=== PATIENT | female | born 1980 | race Caucasian/White ===

== ENCOUNTER 2018-06-27 19:50 | Emergency (ER) | payer OTHER, SELFPAY ==
--- NOTE | 2018-06-27 19:55 | ED_ITS ---
HPI - General Adult General Chief complaint: Chest Pain Stated complaint: CHEST TIGHTNESS, EDEMEA S/P SURGERY Time Seen by Provider: 06/27/18 19:54 Source: patient Mode of arrival: ambulatory Limitations: no limitations History of Present Illness HPI narrative: Patient is a 38-year-old female who approximately 5 days ago underwent a . This was a repeat and scheduled secondary to prior C-sections. Patient had a uncomplicated and delivery. Was discharged home approximately 48 hr after the procedure. She stated that prior to discharge she did bring up that she was feeling swelling in her lower extremities and also her hands. She was told that this was expected after just delivering. She is . Pain is controlled. Has had not having any vaginal bleeding. She states that since the evening that she was discharged from the hospital she was having shortness of breath when she lays flat. States she does not notice the symptoms when she is sitting up when she is ambulating. States she has a very slight left-sided chest pain. She states that the swelling in her ankles and hands is still there but has improved significantly. 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 Two of them have been coiled. One of them was deemed too small to intervened upon. 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 She was on aspirin during her for this. Related Data Previous Rx's Medication Instructions Recorded frgredtbaz-bdjksxrzuxrqx-[id number] 2 cap PO NEEDED #20 tab 02/26/18 50 mg-300 mg-40 mg capsule clotrimazole 1 % topical cream 1 applictn TOP BID #12 gram 04/13/18 azithromycin 250 mg tablet See Label Instructions PO .COMPLEX 05/25/18 #6 tab propranolol 10 mg PO BID #60 tab 06/04/18 betamethasone acetate and sodium 12 mg IM DAILY #2 ml 06/05/18 phos 6 mg/mL suspension for injection Allergies Allergy/AdvReac Type Severity Reaction Status Date / Time Estrogens [ESTROGENS] Allergy Severe STROKE Verified 06/27/18 19:59 amoxicillin [AMOXICILLIN] Allergy Intermediate HIVES Verified 06/27/18 19:59 hydrocodone [From VICODIN] Allergy Unknown Verified 06/27/18 19:59 iodine [IODINE] Allergy Unknown Verified 06/27/18 19:59 Penicillins [PENICILLINS] Allergy Unknown Verified 06/27/18 19:59 Review of Systems Constitutional Denies fever(s) and Denies headache(s) Eyes Denies blurry vision, Denies change in vision and Denies diplopia ENT Ears, Nose, Mouth, and Throat: Denies vertigo, Denies dizziness, Denies headache (s), Denies disequilibrium and Denies sore throat Cardiovascular Reports chest pain, Denies diaphoresis, Denies syncope, Denies rapid heart rate , Reports edema, Denies leg ulcers, Reports leg edema, Denies lightheadedness, Denies radiating jaw, neck or arm pain, Denies palpitations, Reports dyspnea, Denies dyspnea on exertion, Reports orthopnea and Reports slow heart rate Respiratory Denies chest congestion, Denies cough, Denies hemoptysis, Denies pain with cough , Reports dyspnea and Denies dyspnea on exertion Gastrointestinal Gastrointestinal: Denies abdominal pain, Denies nausea and Denies vomiting Genitourinary Denies dysuria and Denies vaginal discharge Musculoskeletal Denies myalgias and Denies arthralgias Integumentary/Breasts Denies lesions and Denies rash Neurologic Denies confusion, Denies vertigo, Denies dizziness, Denies syncope, Denies headache(s), Denies radicular pain and Denies disequilibrium Psychiatric Denies confusion Endocrine Denies palpitations Hematologic/Lymphatic Denies easy bleeding and Denies easy bruising Comments: On aspirin [facility] Social History marital status: number of children: 2 household members: spouse education level: college 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) Smoking Status: Never smoker alcohol intake: never substance use type: does not use Exam Initial Vital Signs Initial Vital Signs: Vital Signs Temperature 98.6 F 06/27/18 19:59 Pulse Rate 57 L 06/27/18 19:59 Respiratory Rate 15 06/27/18 19:59 Blood Pressure 153/82 H 06/27/18 19:59 Pulse Oximetry 100 06/27/18 19:59 Const General: cooperative, healthy appearing, comfortable, well developed, well groomed and No acute distress Orientation: alert, awake and oriented x3 HENMT Head: normal to inspection and normocephalic Eyes General: appearance normal, both eyes and all related structures Resp Effort & Inspection: normal respiratory effort, no grunting, not labored, no stridor and not tachypneic Auscultation: clear to auscultation bilaterally Cardio Rate: bradycardic Rhythm: regular rhythm Pulses: radial pulses present GI Inspection: non-distended Palpation: soft, No firm and tender (Lower abdomen around the scar) Back/Spine/Pelvis Back: No CVA tenderness Skin Lesions: no lesions Rashes: no rashes Other: Lower scar appears well. Steri-Strips in place. No active bleeding. No surrounding redness Neuro General: alert, awake and oriented x3 Cognition: normal cognition Speech: speech normal Motor: muscle tone normal throughout Sensory Exam: no sensory deficits noted Extrem General: normal to inspection and capillary refill normal Other: Minimal if any lower extremity pitting edema. Psych Appearance: grossly normal and well kempt Course Orders Ordered: ED Orders 06/27/18 19:55 XR chest 1V Stat EKG-12 Lead Stat 06/27/18 20:43 CT angio chest PE protocol Stat 06/27/18 20:55 B Type Natriuretic Peptide Stat Basic Metabolic Panel Stat Complete Blood Count AUTO DIFF Stat Hepatic (Liver) Panel Stat Lipase Stat Troponin I Stat 06/27/18 21:45 Partial Thromboplastin Time Stat Prothrombin Time INR Stat Sodium Chloride (Normal Saline 0.9%) 1,000 mls @ 125 mls/hr IV CONT DL Vital Signs - 8 hr 06/27/18 19:59 06/27/18 21:00 06/27/18 21:15 Temperature 98.6 F Pulse Rate 57 L 58 L 53 L Respiratory Rate 15 15 15 Blood Pressure 153/82 H Blood Pressure [Right Arm] 120/67 121/67 Pulse Oximetry 100 100 99 06/27/18 22:20 06/27/18 23:10 06/27/18 23:43 Temperature Pulse Rate 52 L 46 L 50 L Respiratory Rate 16 16 16 Blood Pressure Blood Pressure [Right Arm] 115/66 129/76 129/83 Pulse Oximetry 97 Medical Decision Making Medical Records Medical records reviewed: Yes I reviewed the patient's medical records. Lab Data Lab results reviewed: Yes I reviewed the patient's lab results. Result diagrams: 06/27/18 20:55 06/27/18 20:55 Lab Results 06/27/18 06/27/18 06/27/18 Range/Units 20:55 20:55 20:55 WBC 8.5 (4.5-11.0) X10^3/uL RBC 4.21 (4.0-5.2) X10^6/uL Hgb 12.2 (12.0-16.0) g/dL Hct 36.5 (36-46) % MCV 86.8 (80-100) fL MCH 29.1 (26-34) PG MCHC 33.5 (30-36) % RDW 17.9 H (11.6-14.8) % Plt Count 224 (150-400) X10^3/uL Neut % (Auto) 67.6 (50-75) % Lymph % (Auto) 24.5 L (25-40) % [place] % (Auto) 5.2 (3-14) % Eos % (Auto) 2.3 (2-4) % Baso % (Auto) 0.4 (0-2) % Neut # (Auto) 5800 (0092-0114) /uL PT (10.1-12.7) SECONDS INR (0.9-1.3) APTT (26.4-36.2) SECONDS Sodium 140 (137-145) mmol/L Potassium 3.5 (3.4-5.1) mmol/L Chloride 105 (98-107) mmol/L Carbon Dioxide 25 (22-32) mmol/L BUN 10 (7-17) mg/dL Creatinine 0.60 (0.52-1.04) mg/dL Estimated GFR > 60.0 (>60) mL/min BUN/Creatinine Ratio 16.7 (6-22) Glucose 98 (70-100) mg/dL Calcium 9.9 (8.4-10.2) mg/dL Total Bilirubin 0.3 (0.2-1.3) mg/dL Conjugated Bilirubin 0.0 (0.0-0.3) md/dL Unconjugated Bilirubin 0.1 (0.0-1.1) mg/dL AST 30 (14-36) IU/L ALT 38 (9-52) IU/L Alkaline Phosphatase 90 (38-126) U/L Troponin I (0.01-0.034) ng/mL B-Natriuretic Peptide (<100) Total Protein 7.1 (6.3-8.2) g/dL Albumin 3.7 (3.5-5.0) g/dL Globulin 3.4 (1.7-4.1) g/dL Albumin/Globulin Ratio 1.1 (1.0-2.8) Lipase 175 (23-300) U/L 06/27/18 06/27/18 06/27/18 Range/Units 20:55 20:55 21:45 WBC (4.5-11.0) X10^3/uL RBC (4.0-5.2) X10^6/uL Hgb (12.0-16.0) g/dL Hct (36-46) % MCV (80-100) fL MCH (26-34) PG MCHC (30-36) % RDW (11.6-14.8) % Plt Count (150-400) X10^3/uL Neut % (Auto) (50-75) % Lymph % (Auto) (25-40) % [place] % (Auto) (3-14) % Eos % (Auto) (2-4) % Baso % (Auto) (0-2) % Neut # (Auto) (7340-0844) /uL PT 10.4 (10.1-12.7) SECONDS INR 0.9 (0.9-1.3) APTT 17 L (26.4-36.2) SECONDS Sodium (137-145) mmol/L Potassium (3.4-5.1) mmol/L Chloride (98-107) mmol/L Carbon Dioxide (22-32) mmol/L BUN (7-17) mg/dL Creatinine (0.52-1.04) mg/dL Estimated GFR (>60) mL/min BUN/Creatinine Ratio (6-22) Glucose (70-100) mg/dL Calcium (8.4-10.2) mg/dL Total Bilirubin (0.2-1.3) mg/dL Conjugated Bilirubin (0.0-0.3) md/dL Unconjugated Bilirubin (0.0-1.1) mg/dL AST (14-36) IU/L ALT (9-52) IU/L Alkaline Phosphatase (38-126) U/L Troponin I < 0.012 (0.01-0.034) ng/mL B-Natriuretic Peptide 119 H (<100) Total Protein (6.3-8.2) g/dL Albumin (3.5-5.0) g/dL Globulin (1.7-4.1) g/dL Albumin/Globulin Ratio (1.0-2.8) Lipase (23-300) U/L Urine Dip Bedside Urine Glucose Negative Bedside Urine Bilirubin - Negative Bedside Urine Ketone - Negative Urine Specific [place] 1.010 Bedside Urine Occult Blood - Negative Bedside Urine pH 6.0 Bedside Urine Protein - Negative Bedside Urine Urobilinogen - Negative Bedside Urine Nitrite - Negative Bedside Urine Leukocytes - Negative Esterase Point of care testing: Urine Dip Bedside Urine Glucose Negative Bedside Urine Bilirubin - Negative Bedside Urine Ketone - Negative Urine Specific [place] 1.010 Bedside Urine Occult Blood - Negative Bedside Urine pH 6.0 Bedside Urine Protein - Negative Bedside Urine Urobilinogen - Negative Bedside Urine Nitrite - Negative Bedside Urine Leukocytes - Negative Esterase Imaging Data Chest x-ray: Radiologist's impression: PROCEDURE: XR CHEST 1V INDICATIONS: Shortness of breath. TECHNIQUE: One view of the chest was acquired. COMPARISON: [facility], , CHEST 1 VIEW, 12/20/2014, 16:28. FINDINGS: Surgical changes and devices: None. Lungs and pleura: No pleural effusions or pneumothorax. Lungs are clear. Mediastinum: Mediastinal contours appear normal. Heart size is normal. Bones and chest wall: No suspicious bony lesions. Overlying soft tissues appear unremarkable. IMPRESSION: No acute disease Dictated by: Rolly Kumari M.D. on 06/27/2018 at 20:37 CT PE protocol chest: Radiologist's impression: No evidence of pulmonary embolism or aortic aneurysm or dissection. Post interval treatment changes involving multiple peripheral foci in the lung bases. No acute intrathoracic abnormality. Complex 1.8 cm left thyroid cystic lesion and probable simple 1 cm cyst at the lower right thyroid. ECG Data Attestation: I personally reviewed and interpreted this ECG as follows: Prior ECG tracings: not available for review Interpretation: Sinus bradycardia Ventricular rate of 48 Left axis deviation Incomplete right bundle branch block Normal QRS Normal QTC No ST T wave changes MDM Narrative Medical decision making narrative: Patient shows no signs of heart failure. Low suspicion for cardiomyopathy. Physical exam and lab work not consistent with preeclampsia. CT scan shows no signs of pulmonary embolism or other acute lung pathology. Patient does have a history of AVMs in the lung. EKG is unremarkable. Low suspicion for ACS. No pneumonia or other signs of infection. Her surgical incision looks well. Patient is not anemic. She does take propanolol for tachycardia. She did take her propanolol earlier today. She was bradycardic here in the emergency department but not hypotensive. She seems to be asymptomatic from this bradycardia. She did ambulate around the emergency department with an appropriate elevation in her heart rate to the low 90s. Patient was never hypoxic. Was not tachypneic. Not in respiratory distress. We did discuss the thyroid nodules. She states she knows amount these thyroid nodules. Is followed by her primary doctor. Will hold on further workup for now. Patient was given return precautions. She expressed understanding and agreement with plan. Discharge Plan Departure Patient Disposition: Home Clinical Impression: Bradycardia, Thyroid nodule, Palpitation Instructions: DI for Bradycardia Activity Restrictions/Additional Instructions: I do recommend that you hold on your dose of propanolol this evening. I also recommend that you check your pulse prior to any future doses of this medicine. If your heart rate is less than 70 then I recommend skipping that dose. I recommend that you continue to follow up with her primary doctor with regard to the pulmonary nodules. I do recommend that you increase her fluid intake to help here kidneys process the contrast that you were given this evening for the CT scan. There is no need for you to hold on breast-feeding for now. Return to the emergency department for any new symptoms, worsening symptoms, lightheadedness, passing out, problems breathing or any other concerning symptoms. Keep all of your scheduled medical appointments. Prescriptions: No Action keoodqudtl-gtpwosnvndiqw-xbdi 50-300-40 mg capsule 2 cap PO NEEDED Qty: 20 RF: 0 propranolol 10 mg tablet 10 mg PO BID Qty: 60 RF: 2 betamethasone acet,sod phos 6 mg/mL suspension 12 mg IM DAILY Qty: 2 RF: 0 azithromycin [Zithromax Z-David] 250 mg tablet See Label Instructions PO .COMPLEX Qty: 6 RF: 0 clotrimazole 1 % cream 1 applictn TOP BID Qty: 12 RF: 0
[2018-06-27 19:59] VITALS: BP 153/82; PULSE 57; RESP 15; TEMP 37; O2SAT 100
--- NOTE | 2018-06-27 20:43 | DI.CT.S_ITS ---
PROCEDURE: CT ANGIO CHEST PE PROTOCOL INDICATIONS: Chest pain, shortness of breath, recent surgery TECHNIQUE: After the administration of intravenous contrast, 2 mm thick sections acquired from the pulmonary apices to the posterior costophrenic angles. 3-dimensional maximum intensity projection (MIP) coronal and sagittal reformats were then acquired through the thorax. For radiation dose reduction, the following was used: automated exposure control, adjustment of mA and/or kV according to patient size. COMPARISON: [facility], CT, PE STUDY (CTA CHEST), 12/20/2014, 17:12. FINDINGS: Image quality: Excellent. Pulmonary arteries: Pulmonary arteries are normal in size, and demonstrate no intraluminal filling defects to suggest central pulmonary embolism. Lungs and pleura: No acute consolidation. Bibasilar metallic foci seen in lung bases with grossly unchanged appearance presumably sequela of prior surgical treatment. No pleural effusions or pneumothorax. Central and peripheral airways are patent. Mediastinum: Heart size is enlarged, without pericardial effusion. No mediastinal or hilar adenopathy. Thoracic aorta is normal in caliber and enhancement. Esophagus is normal in caliber, without hiatal hernia. Bones and chest wall: No suspicious bony lesions. Ribs and thoracic spine appear intact throughout. Thyroid gland contains a calcified nodule or cyst in the left lobe. There is also a smaller right thyroid lobe cyst or nodule. No axillary or supraclavicular adenopathy. Abdomen: Visualized upper abdominal solid organs appear normal in the early arterial phase of enhancement. IMPRESSION: No pulmonary embolism. No acute consolidation. Bilateral thyroid indeterminate lesions, for which further evaluation with dedicated ultrasound is recommended Dictated by: Rolly Kumari M.D. on 06/28/2018 at 8:42 Approved by: Rolly Kumari M.D. on 06/28/2018 at 9:03
[2018-06-27 21:00] VITALS: BP 120/67; PULSE 58; RESP 15; O2SAT 100
[2018-06-27 21:05] LABS: Add Manual Diff / Slide Review NO; Basophils Percent Auto 0.4 % (0-2); Eosinophils Percent Auto 2.3 % (2-4); Hematocrit 36.5 % (36-46); Hemoglobin 12.2 g/dL (12.0-16.0); Lymphocytes Percent Auto 24.5 % (25-40); Mean Corpuscular HGB Conc 33.5 % (30-36); Mean Corpuscular Hemoglobin 29.1 PG (26-34); Mean Corpuscular Volume 86.8 fL (80-100); Monocytes Percent Auto 5.2 % (3-14); Neutrophils Absolute Auto 5800 /uL (1500-7000); Neutrophils Percent Auto 67.6 % (50-75); Platelet Count 224 X10^3/uL (150-400); Red Blood Cell Count 4.21 X10^6/uL (4.0-5.2); Red Cell Distribution Width 17.9 % (11.6-14.8); White Blood Cell Count 8.5 X10^3/uL (4.5-11.0)
[2018-06-27 21:15] VITALS: BP 121/67; PULSE 53; RESP 15; O2SAT 99
[2018-06-27 21:32] LABS: Lipase 175 U/L (23-300)
[2018-06-27 21:40] LABS: Alanine Aminotransferase 38 IU/L (9-52); Albumin 3.7 g/dL (3.5-5.0); Albumin Globulin Ratio 1.1 (1.0-2.8); Alkaline Phosphatase 90 U/L (38-126); Aspartate Aminotransferase 30 IU/L (14-36); BUN Creatinine Ratio 16.7 (6-22); Bilirubin Total 0.3 mg/dL (0.2-1.3); Bilirubin Unconjugated 0.1 mg/dL (0.0-1.1); Blood Urea Nitrogen 10 mg/dL (7-17); Calcium 9.9 mg/dL (8.4-10.2); Carbon Dioxide 25 mmol/L (22-32); Chloride 105 mmol/L (98-107); Estimated Glomerular Filt Rate > 60.0 mL/min (>60); Globulin 3.4 g/dL (1.7-4.1); Glucose 98 mg/dL (70-100); HEMOLYSIS < 15 (0-50); Potassium 3.5 mmol/L (3.4-5.1); Sodium 140 mmol/L (137-145); Total Protein 7.1 g/dL (6.3-8.2)
[2018-06-27 22:04] LABS: INR 0.9 (0.9-1.3); Prothrombin Time 10.4 SECONDS (10.1-12.7)
[2018-06-27 22:06] LABS: PTT Partial Thromboplastin Tim 17 SECONDS (26.4-36.2)
[2018-06-27 22:19] LABS: Troponin I < 0.012 ng/mL (0.01-0.034)
[2018-06-27 22:20] VITALS: BP 115/66; PULSE 52; RESP 16
--- NOTE | 2018-06-27 22:20 | PC.NURSE ---
There was a great deal of discussion about pt. having a history of a TIA a couple years ago after too much air in a tubing line infused into her before her AVM was coiled. She requested a filter on her IV to prevent air bubbles. The microtubing at was for filtering particles not air. EDWY consulted several physicians and then discussed with patient the risk benefit of not having IV contrast study. Patient decided to proceed with CT study with contrast to r/o PE. Pt. returned to the department ambulatory without any negative effects from dye or IV admin.
[2018-06-27 22:29] LABS: B Type Natriuretic Peptide 119 (<100)
[2018-06-27 23:10] VITALS: BP 129/76; PULSE 46; RESP 16
--- NOTE | 2018-06-27 23:38 | PC.NURSE ---
1138.. Pt monitor showed pt. heart rate decreased to low 40s. Pt reports a cramping feeling at a 1-2 while laying in stretcher with decreased heart rate. Reported to Anita. Dr Howard requested I put portable pulse Ox on patient and ambulate her through the halls to assess changes. Pt. HR increased to low 90s - sat remained above 95% during walk through ED and radiology. Pt stated her chest cramping on L side increased to a 3 - like my reflux but also crampy while walking. Pt returned to bed and once settled the sensation resolved. Reported above to . No additional orders at present. Pt continues bedside monitoring
[2018-06-27 23:43] VITALS: BP 129/83; PULSE 50; RESP 16; O2SAT 97
== END 2018-06-28 00:33 | disposition home or self-care (01) ==
PROVIDERS: Emergency Provider Emergency Medicine; PCP Family Medicine
DX: R00.1 Bradycardia, unspecified (principal); R00.2 Palpitations; E04.1 Nontoxic single thyroid nodule
CPT/HCPCS: 71045; 71275; 80048; 80076; 81003; 83690; 83880; 84484; 85025; 85610; 85730; 93005; 99283; 99285; Q9967

== ENCOUNTER 2018-07-01 20:56 | Emergency (ER) | payer OTHER, SELFPAY ==
[2018-07-01 21:11] VITALS: BP 151/88; PULSE 55; RESP 16; TEMP 36.7; O2SAT 99
--- NOTE | 2018-07-01 21:53 | ED.GENADULT ---
HPI - General Adult <Phuong Jain, EXPOSURE MACHINE OPERATOR-BC - Last Filed: 07/01/18 22:17> General Chief complaint: Hypertension Stated complaint: states BP 168/105 @20:40 roughly, post Time Seen by Provider: 07/01/18 21:31 Source: patient Mode of arrival: ambulatory Limitations: no limitations History of Present Illness HPI narrative: Patient is a 38-year-old female who is 10 days post . She had a secondary to 2 previous C-sections and not have preeclampsia. Her and subsequent delivery were uncomplicated. She presents today complaining of a higher blood pressure earlier this morning was 180s over 110s. She was seen in this facility on 06/27 on for bradycardia. At that point her propanolol was stopped. She had been on propanolol previously for migraine prevention. This morning she noted her blood pressure was high, so she called her maternal medicine physicians in [place] and went to the emergency department there. There she was given hydralazine and started on a prescription of hydralazine 3 times a day. She took her 2nd dose today at 8:15 p.m.. She is also complaining of chest pressure 2/10 and right shoulder pain. The chest pressure does not radiate anywhere. She does not feel short of breath at this point time. 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 She denies any fever, vomiting or diarrhea. Of note she had a chest CTA and chest x-ray on 06/27 both which came back normal. Related Data Previous Rx's Medication Instructions Recorded zutlbpvhmx-ziaknwzcavyvf-lgxrpvwg 2 cap PO NEEDED #20 tab 02/26/18 50 mg-300 mg-40 mg capsule clotrimazole 1 % topical cream 1 applictn TOP BID #12 gram 04/13/18 azithromycin 250 mg tablet See Label Instructions PO .COMPLEX 05/25/18 #6 tab propranolol 10 mg PO BID #60 tab 06/04/18 betamethasone acetate and sodium 12 mg IM DAILY #2 ml 06/05/18 phos 6 mg/mL suspension for injection lorazepam 0.5 mg tablet 0.5 mg PO QD-BID PRN #10 tab 06/29/18 Allergies Allergy/AdvReac Type Severity Reaction Status Date / Time Estrogens [ESTROGENS] Allergy Severe STROKE Verified 06/27/18 19:59 amoxicillin [AMOXICILLIN] Allergy Intermediate HIVES Verified 06/27/18 19:59 hydrocodone [From VICODIN] Allergy Unknown Verified 06/27/18 19:59 iodine [IODINE] Allergy Unknown Verified 06/27/18 19:59 Penicillins [PENICILLINS] Allergy Unknown Verified 06/27/18 19:59 Review of Systems <MONICA HendersonP- - Last Filed: 07/01/18 22:17> Review of Systems GENERAL: See HPI HEENT: Denies sinus pain, ear pain, sore throat, difficulty swallowing, dizziness. RESPIRATORY: Denies dyspnea, cough, wheezing, hemoptysis, sputum. CARDIOVASCULAR: See HPI GASTROINTESTINAL: Denies nausea, vomiting, abdominal pain, diarrhea, constipation, melena. : Denies dysuria, frequency, incontinence, hematuria, urinary retention. MUSCULOSKELETAL: See HPI SKIN: Denies rash, skin lesions, or other NEUROLOGIC: Denies weakness, headache, numbness, change in speech, confusion, seizures, incoordination. PSYCHIATRIC: No concerning psychosocial issues. 12 point review of systems is negative except for those stated above Exam <Phuong Jain [facility]- - Last Filed: 07/01/18 22:17> Narrative Exam Narrative: GENERAL: This is a well-nourished, well-developed patient, anxious appearing HEAD: Atraumatic. Normocephalic. No temporal or scalp tenderness. EYES: Pupils equal round and reactive. Extraocular motions intact. No scleral icterus. No injection or drainage. ENT: Nose without bleeding, purulent drainage or septal hematoma. Throat without erythema, tonsillar hypertrophy or exudate. Uvula midline. Airway patent. NECK: Trachea midline. No JVD or lymphadenopathy. Supple, nontender, no meningeal signs. CARDIOVASCULAR: Bradycardic rate and rhythm without murmurs, gallops, or rubs. RESPIRATORY: Clear to auscultation. Breath sounds equal bilaterally. No wheezes, rales, or rhonchi. No cough on exam. No accessory muscle use. GASTROINTESTINAL: Active bowel sounds. Abdomen firm nontender to palpation. EXTREMITIES: No clubbing, cyanosis, or edema. No joint tenderness, effusion, or edema noted. BACK: Nontender without deformity or crepitance. No flank tenderness. NEURO: AOx3. SKIN: No rash or erythema. Initial Vital Signs Initial Vital Signs: Vital Signs Temperature 98.1 F 07/01/18 21:11 Pulse Rate 55 L 07/01/18 21:11 Respiratory Rate 16 07/01/18 21:11 Blood Pressure 151/88 H 07/01/18 21:11 Pulse Oximetry 99 07/01/18 21:11 <Phuong Trinidad DO - Last Filed: 07/02/18 01:35> Narrative Exam Narrative: GENERAL: Alert and oriented x three, well-nourished, well-appearing female in mild distress. HEENT: Head normocephalic, atraumatic, EOMI, pupils reactive, face symmetric, moist mucous membranes NECK: Supple, full range of motion CARDIOVASCULAR: Regular rate and rhythm without murmurs, rubs or gallops. RESPIRATORY: Breath sounds equal bilaterally, no wheezes rales or rhonchi. ABDOMEN: Soft, nontender. Normoactive bowel sounds all 4 quadrants. No guarding or rebound, rigidity, no mass EXTREMITIES: Normal range of motion, no clubbing or edema. Neurovascularly intact. No pedal or lower extremity edema. NEUROLOGICAL: Cranial nerves II through XII grossly intact. 2/4 reflexes in upper and lower extremities. Moving all extremities SKIN: Warm, dry, no petechiae, no rashes or lesions. Initial Vital Signs Initial Vital Signs: Vital Signs Temperature 98.1 F 07/01/18 21:11 Pulse Rate 55 L 07/01/18 21:11 Respiratory Rate 16 07/01/18 21:11 Blood Pressure 151/88 H 07/01/18 21:11 Pulse Oximetry 99 07/01/18 21:11 Course <KENDRA Henderson-BC - Last Filed: 07/01/18 22:17> Course Narrative: Patient was signed out to Dr. zaidi at 10:15 p.m. with lab work pending and blood pressure 120s/70s. Orders Ordered: ED Orders 07/01/18 21:49 Complete Blood Count AUTO DIFF Stat 07/01/18 22:22 Comprehensive Metabolic Panel Stat Prothrombin Time INR Stat Troponin & CK Cardiac Panel Stat 07/01/18 22:59 EKG-12 Lead Stat Vital Signs - 8 hr 07/01/18 21:11 07/01/18 22:00 07/01/18 22:30 Temperature 98.1 F Pulse Rate 55 L 71 62 Respiratory Rate 16 16 Blood Pressure 151/88 H Blood Pressure [Left Arm] 126/78 120/76 Pulse Oximetry 99 98 94 07/01/18 23:04 07/01/18 23:34 Temperature Pulse Rate 57 L 55 L Respiratory Rate 16 Blood Pressure 126/76 Blood Pressure [Left Arm] 125/71 Pulse Oximetry 99 99 <Phuong Trinidad DO - Last Filed: 07/02/18 01:35> Orders Ordered: ED Orders 07/01/18 21:49 Complete Blood Count AUTO DIFF Stat 07/01/18 22:22 Comprehensive Metabolic Panel Stat Prothrombin Time INR Stat Troponin & CK Cardiac Panel Stat 07/01/18 22:59 EKG-12 Lead Stat Vital Signs - 8 hr 07/01/18 21:11 07/01/18 22:00 07/01/18 22:30 Temperature 98.1 F Pulse Rate 55 L 71 62 Respiratory Rate 16 16 Blood Pressure 151/88 H Blood Pressure [Left Arm] 126/78 120/76 Pulse Oximetry 99 98 94 07/01/18 23:04 07/01/18 23:34 Temperature Pulse Rate 57 L 55 L Respiratory Rate 16 Blood Pressure 126/76 Blood Pressure [Left Arm] 125/71 Pulse Oximetry 99 99 Medical Decision Making <KENDRA Henderson-BC - Last Filed: 07/01/18 22:17> Lab Data Result diagrams: 07/01/18 21:49 07/01/18 22:22 Lab Results 07/01/18 07/01/18 07/01/18 Range/Units 21:49 22:22 22:22 WBC 8.3 (4.5-11.0) X10^3/uL RBC 4.44 (4.0-5.2) X10^6/uL Hgb 12.8 (12.0-16.0) g/dL Hct 38.6 (36-46) % MCV 86.9 (80-100) fL MCH 28.7 (26-34) PG MCHC 33.1 (30-36) % RDW 17.5 H (11.6-14.8) % Plt Count 312 (150-400) X10^3/uL Neut % (Auto) 64.0 (50-75) % Lymph % (Auto) 26.9 (25-40) % Stark % (Auto) 6.2 (3-14) % Eos % (Auto) 2.2 (2-4) % Baso % (Auto) 0.7 (0-2) % Neut # (Auto) 5300 (3173-2920) /uL PT 11.0 (10.1-12.7) SECONDS INR 1.0 (0.9-1.3) Sodium 141 (137-145) mmol/L Potassium 3.5 (3.4-5.1) mmol/L Chloride 107 (98-107) mmol/L Carbon Dioxide 23 (22-32) mmol/L BUN 9 (7-17) mg/dL Creatinine 0.70 (0.52-1.04) mg/dL Estimated GFR > 60.0 (>60) mL/min BUN/Creatinine Ratio 12.9 (6-22) Glucose 91 (70-100) mg/dL Calcium 9.0 (8.4-10.2) mg/dL Total Bilirubin 0.4 (0.2-1.3) mg/dL AST 19 (14-36) IU/L ALT 24 (9-52) IU/L Alkaline Phosphatase 79 (38-126) U/L Total Creatine Kinase 52 (30-135) U/L CK-MB (CK-2) TNP CK-MB (CK-2) Rel Index TNP Troponin I < 0.012 (0.01-0.034) ng/mL Total Protein 7.0 (6.3-8.2) g/dL Albumin 3.8 (3.5-5.0) g/dL Globulin 3.2 (1.7-4.1) g/dL Albumin/Globulin Ratio 1.2 (1.0-2.8) Urine Dip Bedside Urine Glucose Negative Bedside Urine Bilirubin - Negative Bedside Urine Ketone - Negative Urine Specific [place] 1.010 Bedside Urine Occult Blood - Negative Bedside Urine pH 6.0 Bedside Urine Protein - Negative Bedside Urine Urobilinogen - Negative Bedside Urine Nitrite - Negative Bedside Urine Leukocytes - Negative Esterase Point of care testing: Urine Dip Bedside Urine Glucose Negative Bedside Urine Bilirubin - Negative Bedside Urine Ketone - Negative Urine Specific [place] 1.010 Bedside Urine Occult Blood - Negative Bedside Urine pH 6.0 Bedside Urine Protein - Negative Bedside Urine Urobilinogen - Negative Bedside Urine Nitrite - Negative Bedside Urine Leukocytes - Negative Esterase ECG Data Attestation: I personally reviewed and interpreted this ECG as follows: Interpretation: Sinus bradycardia. Ventricular rate 52. No ectopy noted. QRS 100 MS. <Phuongfrank Trinidad, DO - Last Filed: 07/02/18 01:35> Lab Data Lab results reviewed: Yes I reviewed the patient's lab results. Lab Results 07/01/18 07/01/18 07/01/18 Range/Units 21:49 22:22 22:22 WBC 8.3 (4.5-11.0) X10^3/uL RBC 4.44 (4.0-5.2) X10^6/uL Hgb 12.8 (12.0-16.0) g/dL Hct 38.6 (36-46) % MCV 86.9 (80-100) fL MCH 28.7 (26-34) PG MCHC 33.1 (30-36) % RDW 17.5 H (11.6-14.8) % Plt Count 312 (150-400) X10^3/uL Neut % (Auto) 64.0 (50-75) % Lymph % (Auto) 26.9 (25-40) % Stark % (Auto) 6.2 (3-14) % Eos % (Auto) 2.2 (2-4) % Baso % (Auto) 0.7 (0-2) % Neut # (Auto) 5300 (9271-8124) /uL PT 11.0 (10.1-12.7) SECONDS INR 1.0 (0.9-1.3) Sodium 141 (137-145) mmol/L Potassium 3.5 (3.4-5.1) mmol/L Chloride 107 (98-107) mmol/L Carbon Dioxide 23 (22-32) mmol/L BUN 9 (7-17) mg/dL Creatinine 0.70 (0.52-1.04) mg/dL Estimated GFR > 60.0 (>60) mL/min BUN/Creatinine Ratio 12.9 (6-22) Glucose 91 (70-100) mg/dL Calcium 9.0 (8.4-10.2) mg/dL Total Bilirubin 0.4 (0.2-1.3) mg/dL AST 19 (14-36) IU/L ALT 24 (9-52) IU/L Alkaline Phosphatase 79 (38-126) U/L Total Creatine Kinase 52 (30-135) U/L CK-MB (CK-2) TNP CK-MB (CK-2) Rel Index TNP Troponin I < 0.012 (0.01-0.034) ng/mL Total Protein 7.0 (6.3-8.2) g/dL Albumin 3.8 (3.5-5.0) g/dL Globulin 3.2 (1.7-4.1) g/dL Albumin/Globulin Ratio 1.2 (1.0-2.8) Urine Dip Bedside Urine Glucose Negative Bedside Urine Bilirubin - Negative Bedside Urine Ketone - Negative Urine Specific [place] 1.010 Bedside Urine Occult Blood - Negative Bedside Urine pH 6.0 Bedside Urine Protein - Negative Bedside Urine Urobilinogen - Negative Bedside Urine Nitrite - Negative Bedside Urine Leukocytes - Negative Esterase Point of care testing: Urine Dip Bedside Urine Glucose Negative Bedside Urine Bilirubin - Negative Bedside Urine Ketone - Negative Urine Specific [place] 1.010 Bedside Urine Occult Blood - Negative Bedside Urine pH 6.0 Bedside Urine Protein - Negative Bedside Urine Urobilinogen - Negative Bedside Urine Nitrite - Negative Bedside Urine Leukocytes - Negative Esterase MDM Narrative Medical decision making narrative: During patient's stay here her blood pressure improved to 120/70's. Patient had taken her hydralazine shortly before arrival. Patient's lab work shows no major changes. Physical exam is normal. Patient does not have any hyperreflexia, no lower extremity edema patient has does not have any protein in her urine suggesting she does not have a preeclampsia that is . We did discuss that stopping propranolol shortly could cause some rebound hypertension, it could be hypertension is well. Discussed with patient and she is taking hydralazine 3 times daily. She was not aware that she can have a rebound hypertension and was not taking it every 8 hr so we discussed racing at out more evenly. She was also concerned about breast-feeding, I consulted epocrates and Lactimed were both consulted and found that there was no contraindication to breast-feeding while on hydralazine. I also encouraged her to speak with her [facility] physician for there recommendations. We discussed at length signs and symptoms to watch for and reasons to return as well as goal BP/concerning BP ranges. Patient has already been told to call tomorrow to set up follow up appointment with her OB tomorrow after her discharge today from [facility]. Discharge Plan Departure Patient Disposition: Home Clinical Impression: Hypertension Discharge Date/Time: 07/01/18 23:34 Interventions: ED Discharge Assessment Last Done: 07/01/18 23:34 Instructions: Pre-eclampsia Activity Restrictions/Additional Instructions: Follow-up with your OBGYN/MFM, call tomorrow for your appointment. Continue your medication as prescribed. Return to the emergency department for elevated blood pressure, sudden severe headaches, new vision changes, hyperreflexia, abdominal pain, sudden swelling in your lower extremities, new chest pain or shortness of breath or other new concerning symptoms. Prescriptions: No Action awwapqgzoi-ngglkajvmdpnd-ryfs 50-300-40 mg capsule 2 cap PO NEEDED Qty: 20 RF: 0 propranolol 10 mg tablet 10 mg PO BID Qty: 60 RF: 2 betamethasone acet,sod phos 6 mg/mL suspension 12 mg IM DAILY Qty: 2 RF: 0 lorazepam 0.5 mg tablet 0.5 mg PO QD-BID PRN (Reason: anxiety) Qty: 10 RF: 0 azithromycin [Zithromax Z-David] 250 mg tablet See Label Instructions PO .COMPLEX Qty: 6 RF: 0 clotrimazole 1 % cream 1 applictn TOP BID Qty: 12 RF: 0
[2018-07-01 22:00] VITALS: BP 126/78; PULSE 71; RESP 16; O2SAT 98
[2018-07-01 22:10] LABS: Add Manual Diff / Slide Review NO; Basophils Percent Auto 0.7 % (0-2); Eosinophils Percent Auto 2.2 % (2-4); Hematocrit 38.6 % (36-46); Hemoglobin 12.8 g/dL (12.0-16.0); Lymphocytes Percent Auto 26.9 % (25-40); Mean Corpuscular HGB Conc 33.1 % (30-36); Mean Corpuscular Hemoglobin 28.7 PG (26-34); Mean Corpuscular Volume 86.9 fL (80-100); Monocytes Percent Auto 6.2 % (3-14); Neutrophils Absolute Auto 5300 /uL (1500-7000); Platelet Count 312 X10^3/uL (150-400); Red Blood Cell Count 4.44 X10^6/uL (4.0-5.2); Red Cell Distribution Width 17.5 % (11.6-14.8); White Blood Cell Count 8.3 X10^3/uL (4.5-11.0)
[2018-07-01 22:30] VITALS: BP 120/76; PULSE 62; O2SAT 94
[2018-07-01 22:42] LABS: Alanine Aminotransferase 24 IU/L (9-52); Albumin 3.8 g/dL (3.5-5.0); Albumin Globulin Ratio 1.2 (1.0-2.8); Alkaline Phosphatase 79 U/L (38-126); Aspartate Aminotransferase 19 IU/L (14-36); BUN Creatinine Ratio 12.9 (6-22); Bilirubin Total 0.4 mg/dL (0.2-1.3); Blood Urea Nitrogen 9 mg/dL (7-17); Carbon Dioxide 23 mmol/L (22-32); Chloride 107 mmol/L (98-107); Creatine Kinase 52 U/L (30-135); Estimated Glomerular Filt Rate > 60.0 mL/min (>60); Globulin 3.2 g/dL (1.7-4.1); Glucose 91 mg/dL (70-100); HEMOLYSIS < 15 (0-50); Potassium 3.5 mmol/L (3.4-5.1); Sodium 141 mmol/L (137-145)
[2018-07-01 22:57] LABS: Troponin I < 0.012 ng/mL (0.01-0.034)
[2018-07-01 23:04] VITALS: BP 125/71; PULSE 57; O2SAT 99
[2018-07-01 23:34] VITALS: BP 126/76; PULSE 55; RESP 16; O2SAT 99
== END 2018-07-01 23:34 | disposition home or self-care (01) ==
PROVIDERS: Nurse Practitioner Family; Emergency Provider Emergency Medicine; PCP Family Medicine
DX: I10 Essential (primary) hypertension (principal)
CPT/HCPCS: 36415; 80053; 81003; 82550; 84484; 85025; 85610; 93005; 99283; 99284

== ENCOUNTER → 2018-09-12 12:31 | Outpatient (CLI) | payer OTHER, SELFPAY ==
--- NOTE | 2018-09-12 12:33 | DI.US.S_ITS ---
LIMITED ULTRASOUND OF LEFT BREAST: 09/12/2018 CLINICAL: Skin indentation/dimpling of left breast. Comparison is made to exams dated: 09/12/2018 mammogram - [facility], 04/20/2018 ultrasound, 04/20/2018 ultrasound - [facility], 11/03/2015 mammogram, 11/03/2015 ultrasound, and 11/03/2015 mammogram - [facility]. Real-time and Doppler ultrasound of the left breast 9 o'clock region were performed. Castillo scale images of the real-time examination were reviewed. Targeted ultrasound was performed in the region of the patient's reported skin dimpling/indentation in the left breast at 9 o'clock position 6 cm from the nipple. No underlying breast mass or abnormality is identified. IMPRESSION: NEGATIVE 1) No ultrasound findings to explain patient's reported skin dimpling/indentation in the left breast. Recommend clinical follow-up for further evaluation and management of the patient's reported symptoms. 2) There is no sonographic evidence of malignancy in the imaged left breast. Annual screening mammography beginning at age 40 is recommended, unless earlier high-risk screening is warranted due to individual patient risk factors for the development of breast malignancy. The patient is advised to monitor her breasts and to return sooner for re-evaluation should she feel anything grow or change. This exam was interpreted at Station ID: [id number]. Electronically Signed By: Freddy Velez M.D. ecl/:09/12/2018 17:34:32 letter sent: Clinical Evaluation Ultrasound BI-RADS: 1 Negative
--- NOTE | 2018-09-12 12:33 | DI.MG.S_ITS ---
BILATERAL DIGITAL DIAGNOSTIC MAMMOGRAM 3D/2D: 09/12/2018 CLINICAL: Skin indentation/dimpling in the left breast. Comparison is made to exam dated: 11/03/2015 mammogram - [facility]. The tissue of both breasts is extremely dense, which lowers the sensitivity of mammography. There is a triangular marker overlying the skin of the inner left breast at the site of the patient's reported skin dimpling/indentation. There is no underlying mammographic abnormality. No significant masses, calcifications, or other findings are seen in either breast. IMPRESSION: INCOMPLETE: NEEDS ADDITIONAL IMAGING EVALUATION No mammographic abnormality to correlate with the site of the patient's reported skin dimpling/indentation. Targeted diagnostic ultrasound recommended for further evaluation, which will be performed immediately following this exam. This exam was interpreted at Station ID: [id number]. NOTE: For mammograms, a report in lay terms will be sent to the patient. Approximately 15% of breast malignancies will not be visualized mammographically. In the management of a palpable breast mass, a negative mammogram must not discourage biopsy of a clinically suspicious lesion. Electronically Signed By: Freddy Velez M.D. ecl/:09/12/2018 13:40:49 letter sent: Additional Imaging Needed ACR BI-RADS Category 0: Incomplete [id number]
== END ==
PROVIDERS: PCP Family Medicine; Visit Provider Family Medicine
DX: R92.8 Other abnormal and inconclusive findings on diagnostic imaging of breast (principal)
CPT/HCPCS: 76642; 77066; G0279

== ENCOUNTER → 2018-11-29 14:46 | Outpatient (CLI) | payer OTHER, SELFPAY ==
[2018-11-29 15:30] LABS: Add Manual Diff / Slide Review NO; Basophils Absolute Auto 0 /uL (0-100); Basophils Percent Auto 0.4 % (0-2); Eosinophils Absolute Auto 300 /uL (0-450); Eosinophils Percent Auto 4.8 % (2-4); Hemoglobin 13.8 g/dL (12.0-16.0); Lymphocytes Absolute Auto 1500 /uL (1100-4500); Lymphocytes Percent Auto 25.1 % (25-40); Mean Corpuscular HGB Conc 33.7 % (30-36); Mean Corpuscular Hemoglobin 29.1 PG (26-34); Mean Corpuscular Volume 86.3 fL (80-100); Monocytes Absolute Auto 400 /uL (0-900); Monocytes Percent Auto 6.1 % (3-14); Neutrophils Absolute Auto 3900 /uL (1500-7000); Neutrophils Percent Auto 63.6 % (50-75); Platelet Count 226 X10^3/uL (150-400); Red Blood Cell Count 4.75 X10^6/uL (4.0-5.2); Red Cell Distribution Width 12.5 % (11.6-14.8); White Blood Cell Count 6.1 X10^3/uL (4.5-11.0)
[2018-11-29 16:26] LABS: Vitamin B12 523 pg/mL (239-931)
== END ==
PROVIDERS: PCP Family Medicine; Visit Provider Nurse Practitioner Family
DX: R23.1 Pallor (principal); K14.4 Atrophy of tongue papillae
CPT/HCPCS: 36415; 82607; 85025

== ENCOUNTER → 2020-04-10 12:06 | Outpatient (CLI) | payer OTHER, SELFPAY ==
--- NOTE | 2020-04-10 12:07 | DI.US.S_ITS ---
PROCEDURE: US THYROID INDICATIONS: THYROID NODULES TECHNIQUE: Real-time scanning was performed of the thyroid gland, with image documentation. COMPARISON: [facility], , US THYROID, 04/23/2012, 16:57. FINDINGS: Right: Thyroid lobe measures 5.1 x 2.0 x 1.8 cm, and is homogeneous in echotexture. Left: Thyroid lobe measures 4.6 x 2.1 x 2.2 cm, and is homogenous in echotexture. Isthmus: 3.0 mm thick. Sub 5 mm colloid cyst present. Nodule number: 1 Location: Right mid Size: 0.6 x 0.6 x 0.3 cm. Composition: Predominantly cystic Echogenicity: Hypoechoic Shape: wider than tall. Margins: Smooth Echogenic foci: None Total points: 2 ACR TI-RADS category: Not suspicious Nodule number: 2 Location: Right inferior Size: 0.5 x 0.4 x 0.3 cm. Composition: Solid Echogenicity: Hypoechoic Shape: wider than tall. Margins: Smooth Echogenic foci: None Total points: 4 ACR TI-RADS category: Moderately suspicious Nodule number: 3 Location: Left mid to superior Size: Unchanged at 2.1 x 1.4 x 1.4 cm Composition: Solid Echogenicity: Hypoechoic Shape: Wider than tall Margins: Irregular Echogenic foci: Peripheral calcification Total points: 7 ACR TI-RADS category: Highly suspicious Nodule number: 4 Location: Left inferior Size: Unchanged at 0.8 x 0.6 x 0.3 cm. Composition: Solid Echogenicity: Hypoechoic Shape: wider than tall. Margins: Smooth Echogenic foci: None Total points: 4 ACR TI-RADS category: Moderately suspicious IMPRESSION: 1. Bilateral thyroid nodules and isthmus colloid cyst as above. Recommend fine-needle aspiration involving the right #3 highly suspicious nodule. ACR TI-RADS definitions and recommendations: TI-RADS 1 (benign): 0 points. FNA not needed. TI-RADS 2 (not suspicious): 2 points. FNA not needed. TI-RADS 3 (mildly suspicious): 3 points. * FNA if 2.5 cm or larger, follow up if 1.5 cm or larger (at 1, 3, and 5 years). TI-RADS 4 (moderately suspicious): 4-6 points. * FNA if 1.5 cm or larger, follow up if 1 cm or larger (at 1, 2, 3, and 5 years). TI-RADS 5 (highly suspicious): 7 points or more. * FNA if 1 cm or larger, follow up if 0.5 cm or larger (every year for 5 years). Dictated by: Marcin Cornelius [facility] Interpreted: Consuelo Curry MD on 04/13/2020 at 17:05 Approved by: Consuelo Curry MD, PhD on 04/13/2020 at 17:53
== END ==
PROVIDERS: PCP Family Medicine; Referring Provider Family Medicine; Visit Provider Family Medicine
DX: E04.2 Nontoxic multinodular goiter (principal)
CPT/HCPCS: 76536

== ENCOUNTER → 2020-04-20 17:00 | Outpatient (CLI) | payer OTHER, SELFPAY ==
[2020-04-20 17:47] LABS: Add Manual Diff / Slide Review NO; Basophils Absolute Auto 0 /uL (0-100); Basophils Percent Auto 0.6 % (0-2); Eosinophils Absolute Auto 200 /uL (0-450); Eosinophils Percent Auto 2.5 % (2-4); Hematocrit 39.6 % (36-46); Hemoglobin 13.4 g/dL (12.0-16.0); Lymphocytes Absolute Auto 2100 /uL (1100-4500); Lymphocytes Percent Auto 28.6 % (25-40); Mean Corpuscular HGB Conc 33.7 % (30-36); Mean Corpuscular Hemoglobin 28.7 PG (26-34); Mean Corpuscular Volume 85.2 fL (80-100); Monocytes Absolute Auto 600 /uL (0-900); Monocytes Percent Auto 8.6 % (3-14); Neutrophils Absolute Auto 4400 /uL (1500-7000); Neutrophils Percent Auto 59.7 % (50-75); Platelet Count 264 X10^3/uL (150-400); Red Blood Cell Count 4.65 X10^6/uL (4.0-5.2); Red Cell Distribution Width 13.2 % (11.6-14.8); White Blood Cell Count 7.4 X10^3/uL (4.5-11.0)
[2020-04-20 18:08] LABS: Alanine Aminotransferase 19 IU/L (<35); Albumin 4.5 g/dL (3.5-5.0); Albumin Globulin Ratio 1.4 (1.0-2.8); Alkaline Phosphatase 65 U/L (38-126); Aspartate Aminotransferase 24 IU/L (14-36); Bilirubin Total 0.3 mg/dL (0.2-1.3); Blood Urea Nitrogen 12 mg/dL (7-17); Calcium 9.3 mg/dL (8.4-10.2); Carbon Dioxide 30 mmol/L (22-32); Chloride 101 mmol/L (98-107); Estimated Glomerular Filt Rate > 60.0 mL/min (>60); Globulin 3.3 g/dL (1.7-4.1); Glucose 89 mg/dL (70-100); HEMOLYSIS < 15 (0-50); Potassium 4.5 mmol/L (3.4-5.1); Sodium 137 mmol/L (137-145); Total Protein 7.8 g/dL (6.3-8.2)
[2020-04-20 18:39] LABS: Thyroid Stimulating Hormone 0.737 uIU/mL (0.47-4.68)
== END ==
PROVIDERS: PCP Family Medicine; Referring Provider Family Medicine; Visit Provider Family Medicine
DX: E04.9 Nontoxic goiter, unspecified (principal); Q27.30 Arteriovenous malformation, site unspecified
CPT/HCPCS: 36415; 80053; 84443; 85025

== ENCOUNTER → 2020-04-27 13:38 | Outpatient (CLI) | payer OTHER, SELFPAY ==
--- NOTE | 2020-04-27 | PATH_ITS ---
Note [facility] Accession Number: [id number] TESTS RESULT FLAG UNITS REF RANGE LAB Clinician Provided Cytology Information No. of containers..00 Previously Prepared Cytology Slide 35 Unknown Storage/container code(s) 01 L THYROID NODULE Clinician ICD10: E04.1 DIAGNOSIS: 01 L THYROID NODULE NEGATIVE FOR MALIGNANT CELLS. BETHESDA CATEGORY II. SPECIMEN CONSISTS OF BENIGN FOLLICULAR CELLS, SOME WITH HURTHLE CELL CHANGE, AND A MODERATE AMOUNT OF COLLOID, CONSISTENT WITH A BENIGN FOLLICULAR NODULE. Pathologist ICD10: E04.1 Chief Complaint: Anxiety Medical History: Pulmonary arteriovenous malformation (Chronic) TIA (transient ischemic attack) (Resolved) Angie Weller MD, Pathologist NPI- [id number] Abhi Manzano, Paid Search Manager ([facility]) 01 30 CC, PALE PINK, CLEAR Also received 5 alcohol fixed, 5 quick stained slides, 1 RNA vial. /[facility] 04/28/2020 0932 Local FLAG LEGEND: L-Low Normal,H-High Normal,LL-Alert Low,HH-Alert High <-Panic Low,>-Panic High,A-Abnormal,AA-Critical Abnormal Performed at: 01 =Z [facility] [address], [place] [address] Cal Chan MD, Performed at: 01 [facility] [address], [place], [place] [id number] MD Cal Chan MD Phone: [phone]
--- NOTE | 2020-04-27 13:39 | DI.US.S_ITS ---
PROCEDURE: US FINE NEEDLE ASPIRATION INDICATIONS: LEFT THYROID NODULE TECHNIQUE: The indications, alternatives, benefits, risks, and complications of the procedure were explained to the patient. Written informed consent was obtained and placed in the chart. The thyroid region was examined sonographically and a site was chosen for ultrasound guided percutaneous sampling. The skin was prepared and draped in the usual fashion, and anesthetized with 1% lidocaine infiltrated from the skin down to the thyroid gland. Multiple passes were then performed, with contents emptied into an appropriate pathology specimen container. A bandage was applied to the area of access at completion of the study. COMPARISON: None. FINDINGS: Location(s) of lesion(s) sampled: Left mid thyroid lobe dominant nodule. Peripheral calcifications. [place]: 25 gauge hypodermic needles. Number of passes: 6 Medications: 1% lidocaine for local anaesthesia. Complications: None. IMPRESSION: Successful ultrasound-guided thyroid nodule fine needle aspiration, with cytology results pending. Please see chart below for management recommendations based on cytology results. [facility] ReportingRecommendationsNon-diagnostic* Repeat US-guided FNA, with on-site cytology evaluation if possible. * Repeated non-diagnostic nodules without high suspicion US features: close observation vs surgical consult. * Consider surgery if nodule has high suspicion US features, grows >20% in 2 dimensions on followup, or patient has clinical risk factors for malignancy. Benign* If nodule has high suspicion US features: repeat US and FNA within 12 months. * If nodule has low to intermediate suspicion US features: repeat US at 12-24 months. If nodule grows (20% increase in at least 2 dimensions, with minimal increase of 2 mm or >50% change in volume), or development of new suspicious US features, then repeat FNA or continue followup. * If nodule has very low suspicion US features: followup US at >24 months. Atypia of undetermined significance, follicular lesion of undetermined significanceRepeat FNA, molecular testing, followup US, or surgical consult.Follicular neoplasm, suspicious for follicular neoplasmSurgical consult; also consider molecular testing. Suspicious for malignancySurgical consult.MalignantSurgical consult. Dictated by: Deandre Castellano M.D. on 04/27/2020 at 17:02 Approved by: Deandre Castellano M.D. on 04/27/2020 at 17:03
== END ==
PROVIDERS: PCP Family Medicine; Referring Provider Family Medicine; Visit Provider Family Medicine
DX: E04.1 Nontoxic single thyroid nodule (principal)
CPT/HCPCS: 10005

== ENCOUNTER → 2021-04-05 14:20 | Outpatient (CLI) | payer OTHER, SELFPAY ==
--- NOTE | 2021-04-05 14:21 | DI.RAD.S_ITS ---
PROCEDURE: XR TOE LT MIN 2V INDICATIONS: injury to the left foot TECHNIQUE: 3 views of the left 5th toe(s) acquired. COMPARISON: None. FINDINGS: Bones: No fractures or dislocations. No suspicious bony lesions. Soft tissues: No suspicious soft tissue densities. IMPRESSION: No fracture. No osseous lesion. If symptoms and/or clinical suspicion for pathology persists, further assessment with repeat radiographs (7-10 days) or advanced imaging (e.g. CT, MRI or bone scan) should be considered. Dictated by: Consuelo Curry MD, PhD on 04/05/2021 at 14:36 Approved by: Consuelo Curry MD, PhD on 04/05/2021 at 14:37
== END ==
PROVIDERS: PCP Family Medicine; Referring Provider Family Medicine; Visit Provider Family Medicine
DX: M79.672 Pain in left foot (principal); S99.922A Unspecified injury of left foot, initial encounter; X58.XXXA Exposure to other specified factors, initial encounter
CPT/HCPCS: 73660

== ENCOUNTER → 2021-08-05 10:58 | Outpatient (CLI) | payer OTHER, SELFPAY ==
--- NOTE | 2021-08-05 10:59 | DI.RAD.S_ITS ---
PROCEDURE: XR CHEST 2V INDICATIONS: right chest pain TECHNIQUE: 2 views of the chest were acquired. COMPARISON: [facility], , XR CHEST 1V, 06/27/2018, 20:28. FINDINGS: Surgical changes and devices: None. Lungs and pleura: Lungs are clear. No pleural effusions or pneumothorax. Mediastinum: Mediastinal contours are normal. Heart size is normal. Bones and chest wall: No suspicious bony abnormalities. Soft tissues appear unremarkable. IMPRESSION: No acute cardiopulmonary pathology. Dictated by: Alejandro Dove M.D. on 08/05/2021 at 13:12 Approved by: Alejandro Dove M.D. on 08/05/2021 at 13:12
[2021-08-05 13:19] LABS: D Dimer 480 ng/mL (<230)
== END ==
PROVIDERS: PCP Family Medicine; Referring Provider Family Medicine; Visit Provider Family Medicine
DX: R07.9 Chest pain, unspecified (principal); Q25.72 Congenital pulmonary arteriovenous malformation
CPT/HCPCS: 36415; 71046; 85379

== ENCOUNTER 2021-08-05 14:00 | Emergency (ER) | payer OTHER, SELFPAY ==
[2021-08-05 14:06] VITALS: BP 135/86; PULSE 92; RESP 16; TEMP 37.2; O2SAT 100; BMI 23.9
--- NOTE | 2021-08-05 14:47 | ED.CHESTPAIN ---
HPI - Chest Pain General Chief Complaint: Chest Pain Stated Complaint: Abnormal labs- sent by Dr. Landers Time Seen by Provider: 08/05/21 14:36 Source: patient Mode of arrival: Ambulatory Limitations: no limitations History of Present Illness HPI narrative: Patient is a 41-year-old female. She was seen by her primary doctor earlier today for right-sided chest discomfort. Received a call from the primary doctor stating that she had a EKG that was unremarkable. Chest x-ray that was unremarkable. Vital signs are unremarkable on exam that was fairly unremarkable. Patient states that for the past couple days she has had right-sided pain. Not worse with palpation. Somewhat worse with a deep breath. Has not tried anything for the symptoms prior to arrival. 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 Has had strokes in the past because these. Patient states she has never had a pulmonary embolism in the past. Primary doctor ordered a D-dimer which was elevated. Patient was sent to the emergency department for further evaluation. Patient denies lower extremity swelling. Related Data Previous Rx's Medication Instructions Recorded aspirin 81 mg tablet,delayed 81 mg PO DAILY #90 tab 07/13/18 release sertraline 25 mg tablet 25 mg PO DAILY #90 tab 03/05/20 lorazepam 0.5 mg tablet 0.5 mg PO QD-BID PRN #10 tab 02/10/21 iuefrcicrq-rpedscbnsmjtx-vkrkndwd See Rx Instructions .ROUTE 03/11/21 50 mg-325 mg-40 mg tablet .COMPLEX #30 tab propranolol 10 mg tablet 10 mg PO BID #180 tab 03/12/21 Allergies Allergy/AdvReac Type Severity Reaction Status Date / Time Estrogens [ESTROGENS] Allergy Severe STROKE Verified 03/25/19 13:36 amoxicillin [AMOXICILLIN] Allergy Intermediate HIVES Verified 03/25/19 13:36 hydrocodone [From VICODIN] Allergy Unknown Verified 03/25/19 13:36 iodine [IODINE] Allergy Unknown Verified 03/25/19 13:36 Penicillins [PENICILLINS] Allergy Unknown Verified 03/25/19 13:36 Review of Systems Constitutional Constitutional: Reports system reviewed and no additional complaints, except as documented Cardiovascular Cardiovascular: Reports as per HPI and Reports system reviewed and no additional complaints, except as documented Respiratory Respiratory: Reports system reviewed and no additional complaints, except as documented Gastrointestinal Gastrointestinal: Reports system reviewed and no additional complaints, except as documented Integumentary/Breasts Skin/Breast: Reports system reviewed and no additional complaints, except as documented Neurologic Neurologic: Reports system reviewed and no additional complaints, except as documented Hematologic/Lymphatic On Anticoagulants: No Patient History Medical History 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 Thyroid nodule TIA (transient ischemic attack) Surgical History History of vascular surgery (10/2014) Status post delivery (2012) Status post delivery (2013) Status post delivery (~2017) Family History Brother Atrial fibrillation Family/Other Colon cancer Other AVM (arteriovenous malformation) CVA (cerebral vascular accident) Social History marital status: number of children: 2 household members: spouse education level: college occupational status: other Smoking Status: Never smoker alcohol intake: never substance use type: does not use Smoking Status: Never smoker alcohol intake frequency: 0-2 drinks per day Substance Use Type: does not use Exam Initial Vital Signs Initial Vital Signs: Vital Signs Temperature 98.9 F 08/05/21 14:06 Pulse Rate 92 H 08/05/21 14:06 Respiratory Rate 16 08/05/21 14:06 Blood Pressure 135/86 08/05/21 14:06 Pulse Oximetry 100 08/05/21 14:06 HENMT Head: normal to inspection and normocephalic Chest Chest: No crepitus and No tenderness Resp Effort & Inspection: normal respiratory effort Auscultation: clear to auscultation bilaterally Cardio Rate: regular rate Rhythm: regular rhythm Skin General: no rashes or lesions noted Neuro General: patient alert, patient awake, patient oriented x3 and moves all extremities Extrem General: normal to inspection and capillary refill normal Psych Appearance: grossly normal and well kempt Course Orders Ordered: ED Orders 08/05/21 14:20 Basic Metabolic Panel Stat Complete Blood Count AUTO DIFF Stat Test Serum,Qual Stat 08/05/21 14:48 CT angio chest PE protocol Stat Discontinued Medications Diphenhydramine HCl (Diphenhydramine 50 Mg/Ml Vial) 25 mg IV NOW ONE Stop: 08/05/21 14:59 Last Admin: 08/05/21 15:07 Dose: 25 mg Documented by: AUPDIKE Vital Signs Vital signs: Vital Signs - 8 hr 08/05/21 14:06 Temperature 98.9 F Pulse Rate 92 H Respiratory Rate 16 Blood Pressure 135/86 Pulse Oximetry 100 MDM - Chest Pain Medical Records Data Attestation: I reviewed the patient's medical records. Lab Data Attestation: I reviewed the patient's lab results. Result diagrams: 08/05/21 14:20 08/05/21 14:20 Labs: Lab Results 08/05/21 08/05/21 08/05/21 Range/Units 14:20 14:20 14:20 WBC 5.7 (4.5-11.0) X10^3/uL RBC 4.67 (4.0-5.2) X10^6/uL Hgb 13.5 (12.0-16.0) g/dL Hct 40.3 (36-46) % MCV 86.3 (80-100) fL MCH 28.8 (26-34) PG MCHC 33.4 (30-36) % RDW 12.7 (11.6-14.8) % Plt Count 199 (150-400) X10^3/uL Neut % (Auto) 51.0 (50-75) % Lymph % (Auto) 38.6 (25-40) % Sandoval % (Auto) 7.2 (3-14) % Eos % (Auto) 2.7 (2-4) % Baso % (Auto) 0.5 (0-2) % Neut # (Auto) 2900 (0520-0479) /uL Lymph # (Auto) 2200 (8072-8299) /uL Sandoval # (Auto) 400 (0-900) /uL Eos # (Auto) 200 (0-450) /uL Baso # (Auto) 0 (0-100) /uL Sodium 140 (137-145) mmol/L Potassium 3.9 (3.4-5.1) mmol/L Chloride 106 (98-107) mmol/L Carbon Dioxide 29 (22-32) mmol/L BUN 11 (7-17) mg/dL Creatinine 0.80 (0.52-1.04) mg/dL Estimated GFR > 60.0 (>60) mL/min BUN/Creatinine Ratio 13.8 (6-22) Glucose 110 H (70-100) mg/dL Calcium 9.3 (8.4-10.2) mg/dL Serum , Qual Negative (Negative) Imaging Data CT scan - chest: Radiologist's Impression: [address] [address] [address] Scan Report Signed Patient: Jenna Reyes MR#: [id number] : 1980 Acct:[id number] Age/Sex: 41 / F Date of Service: 08/05/21 Loc: ED Accession Number: [id number] ?? Procedure: CT angio chest PE protocol Ordering Provider: Mike Howard D.O. PROCEDURE:? CT ANGIO CHEST PE PROTOCOL ? INDICATIONS:? Chest pain, elevated D-dimer ? TECHNIQUE:? After the administration of intravenous contrast, 2 mm thick sections acquired from the pulmonary apices to the posterior costophrenic angles.? 3-dimensional maximum intensity projection (MIP) coronal and sagittal reformats were then acquired through the thorax.? For radiation dose reduction, the following was used:? automated exposure control, adjustment of mA and/or kV according to patient size.? ? COMPARISON:? [facility], CT, CT ANGIO CHEST PE PROTOCOL, 06/27/2018, 22:11. ? FINDINGS:? Image quality:? Excellent.? ? Pulmonary arteries:? Pulmonary arteries are normal in size, and demonstrate no intraluminal filling defects to suggest central pulmonary embolism.? ? Lungs and pleura:? No evidence of pneumonia or edema.? Bilobular nodule within the right lung base anteriorly measuring 8 mm is not significantly changed.? No pleural effusions or pneumothorax.? Central and peripheral airways are patent.? ? Mediastinum:? Heart size is normal, without pericardial effusion.? No mediastinal or hilar adenopathy.? Thoracic aorta is normal in caliber and enhancement.? Esophagus is normal in caliber, without hiatal hernia.? ? Bones and chest wall:? No suspicious bony lesions.? Ribs and thoracic spine appear intact throughout.? Thyroid gland demonstrates a peripherally calcified left lobe nodule measuring 17 mm diameter, as before..? No axillary or supraclavicular adenopathy.? ? Abdomen:? Visualized upper abdominal solid organs appear normal in the early arterial phase of enhancement.? ? IMPRESSION:? 1. No pulmonary embolus. 2. No change in right lung base nodule. 3. No change in left thyroid nodule.? This could be further assessed with thyroid ultrasound, if clinically indicated.? ? ? Dictated by: Mirian Nichols M.D. on 08/05/2021 at 15:42 ? ? Approved by: Mirian Nichols M.D. on 08/05/2021 at 15:48? MDM Narrative Medical decision making narrative: Patient's labs and vital signs here in the emergency department are unremarkable. Physical exam is unremarkable. Chest CT does not show any signs of pulmonary embolism. She does have a thyroid nodule. She knows about this. Has had it evaluated in the past. Unsure the exact etiology of the patient's chest discomfort however I have low suspicion for pneumonia, collapsed lung, pulmonary embolism, ACS. There is no indication for antibiotics. No indication for admission the hospital. I did discuss this with the patient. Will have her continue all of her medications as directed. Will have her contact her primary doctor for follow-up. She expressed understanding and agreement. Discharge Plan Departure Patient Disposition: Home Clinical Impression: Atypical chest pain, Thyroid nodule Instructions: DI for Atypical Chest Pain Activity Restrictions/Additional Instructions: The CT scan today did not show any signs of a blood clot in your lungs. Unfortunately I do not have a specific diagnosis for the cause of your discomfort but based on the workup that your primary doctor did an what we did here in the emergency department it does not appear to be an emergent or infectious or life-threatening issue. If your symptoms worsen or you develop new symptoms please return to the emergency department for new or worsening symptoms. Prescriptions: No Action sertraline 25 mg tablet 25 mg PO DAILY Qty: 90 3RF lorazepam 0.5 mg tablet 0.5 mg PO QD-BID PRN (Reason: anxiety) Qty: 10 0RF Rx Instructions: Take 1/2 tab twice daily as needed by mouth [id number]-lfzalgknlrbfh-zdvl 50-325-40 mg tablet See Rx Instructions .ROUTE .COMPLEX Qty: 30 0RF Dose Instruction: TAKE 2 TABLETS BY MOUTH NEEDED FOR MIGRAINES. TAKE 1 TABLET 4 HOURSLATER IF NECESSARY Rx Instructions: TAKE 2 TABLETS BY MOUTH NEEDED FOR MIGRAINES. TAKE 1 TABLET 4 HOURSLATER IF NECESSARY propranolol 10 mg tablet 10 mg PO BID Qty: 180 3RF aspirin 81 mg tablet,delayed release (DR/EC) 81 mg PO DAILY Qty: 90 0RF Referrals: Preethi Landers DO [Primary Care Provider] -
--- NOTE | 2021-08-05 14:48 | DI.CT.S_ITS ---
PROCEDURE: CT ANGIO CHEST PE PROTOCOL INDICATIONS: Chest pain, elevated D-dimer TECHNIQUE: After the administration of intravenous contrast, 2 mm thick sections acquired from the pulmonary apices to the posterior costophrenic angles. 3-dimensional maximum intensity projection (MIP) coronal and sagittal reformats were then acquired through the thorax. For radiation dose reduction, the following was used: automated exposure control, adjustment of mA and/or kV according to patient size. COMPARISON: [facility], CT, CT ANGIO CHEST PE PROTOCOL, 06/27/2018, 22:11. FINDINGS: Image quality: Excellent. Pulmonary arteries: Pulmonary arteries are normal in size, and demonstrate no intraluminal filling defects to suggest central pulmonary embolism. Lungs and pleura: No evidence of pneumonia or edema. Bilobular nodule within the right lung base anteriorly measuring 8 mm is not significantly changed. No pleural effusions or pneumothorax. Central and peripheral airways are patent. Mediastinum: Heart size is normal, without pericardial effusion. No mediastinal or hilar adenopathy. Thoracic aorta is normal in caliber and enhancement. Esophagus is normal in caliber, without hiatal hernia. Bones and chest wall: No suspicious bony lesions. Ribs and thoracic spine appear intact throughout. Thyroid gland demonstrates a peripherally calcified left lobe nodule measuring 17 mm diameter, as before.. No axillary or supraclavicular adenopathy. Abdomen: Visualized upper abdominal solid organs appear normal in the early arterial phase of enhancement. IMPRESSION: 1. No pulmonary embolus. 2. No change in right lung base nodule. 3. No change in left thyroid nodule. This could be further assessed with thyroid ultrasound, if clinically indicated. Dictated by: Mirian Nichols M.D. on 08/05/2021 at 15:42 Approved by: Mirian Nichols M.D. on 08/05/2021 at 15:48
[2021-08-05 14:56] LABS: Add Manual Diff / Slide Review NO; Basophils Absolute Auto 0 /uL (0-100); Basophils Percent Auto 0.5 % (0-2); Eosinophils Absolute Auto 200 /uL (0-450); Eosinophils Percent Auto 2.7 % (2-4); Hematocrit 40.3 % (36-46); Hemoglobin 13.5 g/dL (12.0-16.0); Lymphocytes Absolute Auto 2200 /uL (1100-4500); Lymphocytes Percent Auto 38.6 % (25-40); Mean Corpuscular HGB Conc 33.4 % (30-36); Mean Corpuscular Hemoglobin 28.8 PG (26-34); Mean Corpuscular Volume 86.3 fL (80-100); Monocytes Absolute Auto 400 /uL (0-900); Monocytes Percent Auto 7.2 % (3-14); Neutrophils Absolute Auto 2900 /uL (1500-7000); Platelet Count 199 X10^3/uL (150-400); Red Blood Cell Count 4.67 X10^6/uL (4.0-5.2); Red Cell Distribution Width 12.7 % (11.6-14.8); White Blood Cell Count 5.7 X10^3/uL (4.5-11.0)
[2021-08-05 15:06] LABS: BUN Creatinine Ratio 13.8 (6-22); Blood Urea Nitrogen 11 mg/dL (7-17); Calcium 9.3 mg/dL (8.4-10.2); Carbon Dioxide 29 mmol/L (22-32); Chloride 106 mmol/L (98-107); Estimated Glomerular Filt Rate > 60.0 mL/min (>60); Glucose 110 mg/dL (70-100); HEMOLYSIS < 15 (0-50); Potassium 3.9 mmol/L (3.4-5.1); Sodium 140 mmol/L (137-145)
[2021-08-05] MEDS: diphenhydrAMINE 50 MG/ML VIAL 25 MG IV (15:07)
[2021-08-05 15:08] LABS: Pregnancy Test Serum,Qual Negative (Negative)
[2021-08-05 15:30] VITALS: BP 145/67; PULSE 82; RESP 18; O2SAT 98
== END 2021-08-05 16:16 | disposition home or self-care (01) ==
PROVIDERS: Emergency Provider Emergency Medicine; PCP Family Medicine
DX: R07.89 Other chest pain (principal); E04.1 Nontoxic single thyroid nodule; Q25.72 Congenital pulmonary arteriovenous malformation; R07.9 Chest pain, unspecified
CPT/HCPCS: 36415; 71046; 71275; 80048; 84703; 85025; 85379; 96374; 99284; J1200; Q9967

== ENCOUNTER 2023-01-08 18:56 | Emergency (ER) | payer OTHER, SELFPAY ==
[2023-01-08 18:59] VITALS: BP 133/60; PULSE 113; RESP 18; TEMP 36.7; O2SAT 98; BMI 21.6
--- NOTE | 2023-01-08 19:05 | DI.RAD.S_ITS ---
PROCEDURE: XR FOREARM LT 2V INDICATIONS: softball to arm TECHNIQUE: 2 views of the forearm were acquired. COMPARISON: None. FINDINGS: Bones: Mildly displaced fracture of the distal ulnar diaphysis. Soft tissues: No suspicious soft tissue calcifications or masses. IMPRESSION: Mildly displaced fracture of the distal ulnar diaphysis. Dictated by: Faustino Acosta M.D. on 01/08/2023 at 20:15 Approved by: Faustino Acosta M.D. on 01/08/2023 at 20:15
[2023-01-08] MEDS: ACETAMINOPHEN 325 MG TABLET 975 MG PO (19:10)
[2023-01-08 23:17] VITALS: BP 130/68; PULSE 85; RESP 16; O2SAT 100
--- NOTE | 2023-01-08 23:45 | ED_ITS ---
HPI - Extremity Injury (Upper) General Chief Complaint: Extremity Injury, Upper Stated Complaint: LT ARM INJ/HIT WITH SOFTBALL Time Seen by Provider: 01/08/23 23:37 Source: patient Mode of arrival: Ambulatory History of Present Illness HPI narrative: Patient is a 42-year-old female history of pulmonary AVMs on aspirin 81mg daily presenting today with left forearm pain. She says she was running base when she was hit in the forearm with a softball. She is left-handed. No numbness tingling no other injury. Related Data Previous Rx's Medication Instructions Recorded aspirin 81 mg tablet,delayed 81 mg PO DAILY #90 tabs 07/13/18 release sertraline 25 mg tablet 25 mg PO DAILY #90 tabs 03/05/20 lorazepam 0.5 mg tablet 0.5 mg PO QD-BID PRN anxiety #10 02/10/21 tabs propranolol 10 mg tablet See Rx Instructions .Route 05/26/22 .COMPLEX #180 tabs [id number]-kxpxqrdxromdb-vvpsdsog See Rx Instructions .Route 07/19/22 50 mg-325 mg-40 mg tablet .COMPLEX #30 tabs oxycodone-acetaminophen 5 mg-325 1 tab PO Q6H PRN pain #10 tabs 01/08/23 mg tablet (Percocet) Allergies Allergy/AdvReac Type Severity Reaction Status Date / Time Estrogens [ESTROGENS] Allergy Severe STROKE Verified 03/25/19 13:36 amoxicillin [AMOXICILLIN] Allergy Intermediate HIVES Verified 03/25/19 13:36 hydrocodone [From VICODIN] Allergy Unknown Rash Verified 01/08/23 18:59 iodine [IODINE] Allergy Unknown Flushing Verified 01/08/23 18:59 Penicillins [PENICILLINS] Allergy Unknown Rash Verified 01/08/23 18:59 Review of Systems Review of Systems ROS Unobtainable: All systems reviewed & are unremarkable except as noted in HPI and below Patient History Medical History (Updated 01/08/23 @ 23:53 by Susana Segura DO) Hereditary hemorrhagic telangiectasia Nasal obstruction Pulmonary arteriovenous malformation Thyroid nodule TIA (transient ischemic attack) Surgical History History of vascular surgery (10/2014) Status post delivery (2012) Status post delivery (2013) Status post delivery (~2017) Family History Brother Atrial fibrillation Family/Other Colon cancer Other AVM (arteriovenous malformation) CVA (cerebral vascular accident) Social History marital status: number of children: 2 household members: spouse education level: college occupational status: other Smoking Status: Never smoker alcohol intake: never substance use type: does not use Smoking Status: Never smoker alcohol intake frequency: 0-2 drinks per day Substance Use Type: does not use Exam Initial Vital Signs Initial Vital Signs: Vital Signs Temperature 98.0 F 01/08/23 18:59 Pulse Rate 113 H 01/08/23 18:59 Respiratory Rate 18 01/08/23 18:59 Blood Pressure 133/60 01/08/23 18:59 Pulse Oximetry 98 01/08/23 18:59 Oxygen Delivery Method Room Air 01/08/23 18:59 GENERAL: Well-appearing, well-nourished and in no acute distress. CARDIOVASCULAR: peripheral pulses in tact, cap refill <2 sec RESPIRATORY: No respiratory distress, speaks in full sentences without difficulty EXTREMITIES: Normal range of motion, no clubbing or edema. Neurovascularly intact Left arm mild ulnar pain no significant deformity distal radial pulse intact no other pain or injury NEUROLOGICAL: Cranial nerves II through XII grossly intact. Normal gait and speech. SKIN: Warm, dry, no petechiae, no rashes or lesions. Procedures Orthopedic Splinting/Casting Injury #1: Upper Extremity Injury Location: forearm Upper Extremity Immobilizer: sling/shoulder immobilizer and sugar tong splint Post splinting neuro exam: intact Post splinting vascular exam: intact Placed by: Nursing Course Orders Ordered: Discontinued Medications Acetaminophen (Acetaminophen 325 Mg Tablet) 975 mg PO NOW ONE Stop: 01/08/23 19:06 Last Admin: 01/08/23 19:10 Dose: 975 mg Documented By: GEGE Oxycodone/Acetaminophen (Oxycodone/Apap 5/325 Prepack) 1 bottle MISC SEEINSTR ONE Stop: 01/09/23 00:02 Last Admin: 01/09/23 00:05 Dose: 1 bottle Documented By: SILVANA Oxycodone/Acetaminophen (Oxycodone/Acetaminophen 5/325 Tablet) 1 tab PO NOW ONE Stop: 01/09/23 00:02 Last Admin: 01/09/23 00:05 Dose: 1 tab Documented By: SILVANA Vital Signs Vital signs: Vital Signs - 8 hr 01/08/23 23:17 Pulse Rate 85 Respiratory Rate 16 Blood Pressure 130/68 Pulse Oximetry 100 Oxygen Delivery Method Room Air [facility] - Extremity Injury (Upper) Imaging Data Extremity x-ray #1: Radiologist's Impression: PROCEDURE:? XR FOREARM LT 2V ? INDICATIONS:? softball to arm ? TECHNIQUE:? 2 views of the forearm were acquired.? ? COMPARISON:? None. ? FINDINGS:? ? Bones:? Mildly displaced fracture of the distal ulnar diaphysis. ? Soft tissues:? No suspicious soft tissue calcifications or masses.? ? ? IMPRESSION:? Mildly displaced fracture of the distal ulnar diaphysis. ? Dictated by: Faustino Acosta M.D. on 01/08/2023 at 20:15 ? ? [facility] Narrative Medical decision making narrative: Patient 42-year-old female presents today after injury with softball. She is found to have an isolated ulnar midshaft fracture. Neurovascularly intact she is splinted which is quite painful but it then settles after she is splinted. She has a rash reaction to hydrocodone she is given Percocet. I suspect that this will heal with conservative management nonetheless she is given Orthopedics for close follow-up. She does have pulmonary AVM, she takes aspirin 81 mg daily. Low risk for fat emboli. She has a freight clerk Dr. Mackenzie who she follows with. She will call tomorrow. Discharge Plan Departure Patient Disposition: Home Clinical Impression: Fracture of ulnar shaft, closed Qualifiers: Encounter type: initial encounter Fracture morphology: transverse Fracture alignment: displaced Laterality: left Qualified Code(s): S52.222A - Displaced transverse fracture of shaft of left ulna, initial encounter for closed fracture Instructions: DI for Forearm Fracture Activity Restrictions/Additional Instructions: *You have been diagnosed with left ulnar fracture *What to do: At this time keep arm in splint wear sling as needed. You may ice through the splint. *Continue to take medications as directed Percocet 1 tablet every 6 hours if needed for severe pain--> sent to [facility] in [place] *Follow up with your primary care provider in 2-3 days or call [phone] Call orthopedics tomorrow to schedule follow-up appointment *Return to ER if you should have increased numbness tingling weakness pain or any new, worsening or concerning symptoms CONTROLLED SUBSTANCE DISCHARGE (Narcotoic/benzodiazepine/Flexeril/Phenergan) 1. You have been prescribed narcotic medications, it does have acetaminophen/Tylenol/paracetamol in it, DO NOT TAKE MORE THAN 4,00mg in 24 hours of Tylenol. TRAMADOL DOES NOT CONTAIN TYLENOL 2. Please understand that we cannot provide further refills of narcotics, benzodiazepines or controlled substances through the ED and her pain management will need to be through your provider. 3. While on these medications you cannot drive or operate heavy machinery. 4. You cannot sign legal documents or perform any duties such as this. 5. As long as you're taking opiate pain medications he should also be taking a stool softener such as Colace, Dulcolax, MiraLAX or prune juice, to help avoid constipation. Prescriptions: New oxycodone-acetaminophen [Percocet] 5-325 mg tablet 1 tab PO Q6H PRN (Reason: pain) Qty: 10 0RF No Action sertraline 25 mg tablet 25 mg PO DAILY Qty: 90 3RF lorazepam 0.5 mg tablet 0.5 mg PO QD-BID PRN (Reason: anxiety) Qty: 10 0RF Rx Instructions: Take 1/2 tab twice daily as needed by mouth propranolol 10 mg tablet See Rx Instructions .ROUTE .COMPLEX Qty: 180 3RF Dose Instruction: TAKE 1 TABLET BY MOUTH TWICE DAILY Rx Instructions: TAKE 1 TABLET BY MOUTH TWICE DAILY cfiupmtmbx-fddrxepygoqve-vncy 50-325-40 mg tablet See Rx Instructions .ROUTE .COMPLEX Qty: 30 0RF Dose Instruction: TAKE 2 TABLETS BY MOUTH NEEDED FOR MIGRAINES. TAKE 1 TABLET 4 HOURSLATER IF NECESSARY Rx Instructions: TAKE 2 TABLETS BY MOUTH NEEDED FOR MIGRAINES. TAKE 1 TABLET 4 HOURSLATER IF NECESSARY aspirin 81 mg tablet,delayed release (DR/EC) 81 mg PO DAILY Qty: 90 0RF Referrals: [facility] [Provider Group] Preethi Landers DO [Primary Care Provider] - Stand Alone Forms: Patient Portal/API
[2023-01-09] MEDS: OXYCODONE/ACETAMINOPHEN 5/325 TABLET 1 TAB PO (00:05)
[2023-01-09] MEDS: OXYCODONE/APAP 5/325 PREPACK 1 BOTTLE MISC (00:05)
== END 2023-01-09 00:15 | disposition home or self-care (01) ==
PROVIDERS: Emergency Provider Emergency Medicine; PCP Family Medicine
DX: S52.222A Displaced transverse fracture of shaft of left ulna, initial encounter for closed fracture (principal); W21.07XA Struck by softball, initial encounter; Y93.64 Activity, baseball
CPT/HCPCS: 73090; 99283

== ENCOUNTER 2023-03-30 13:45 | Emergency (ER) | payer OTHER, SELFPAY ==
[2023-03-30 14:02] VITALS: BP 147/84; PULSE 83; RESP 14; TEMP 37.5; O2SAT 99; BMI 21.6
[2023-03-30] MEDS: predniSONE 20 MG TABLET 40 MG PO (14:15)
[2023-03-30] MEDS: FAMOTIDINE 20 MG TABLET PO (14:15)
--- NOTE | 2023-03-30 14:26 | ED.ALLEREA ---
HPI - Allergic Reaction General Chief complaint: Allergic Reaction Stated complaint: stung Lcalf T-0 reaction Time Seen by Provider: 03/30/23 14:20 Source: patient Mode of arrival: Ambulatory History of Present Illness HPI narrative: Patient had in [address] [place] [address] [place] 1 hour ago. Had tingling to thigh and leg. She was stung in the mid left calf. No trouble breathing at this time. No throat tightening. No prior history of anaphylaxis to bee stings or insect stings. She is had bee stings before. Patient in no distress at this time. Related Data Previous Rx's Medication Instructions Recorded aspirin 81 mg tablet,delayed 81 mg PO DAILY #90 tabs 07/13/18 release propranolol 10 mg tablet See Rx Instructions .Route 05/26/22 .COMPLEX #180 tabs [id number]-efqvdzzjaqsfw-gscntnjp 1 tab PO Q6H PRN migraine headache 04/07/23 50 mg-325 mg-40 mg tablet #10 tabs Allergies Allergy/AdvReac Type Severity Reaction Status Date / Time Estrogens [ESTROGENS] Allergy Severe STROKE Verified 02/01/23 15:09 amoxicillin [AMOXICILLIN] Allergy Intermediate HIVES Verified 02/01/23 15:09 hydrocodone [From VICODIN] Allergy Unknown Rash Verified 02/01/23 15:09 iodine [IODINE] Allergy Unknown Flushing Verified 02/01/23 15:09 Penicillins [PENICILLINS] Allergy Unknown Rash Verified 02/01/23 15:09 Review of Systems Review of Systems Narrative: GENERAL: negative chills, fatigue, malaise, fever, sweats. HEENT: negative sinus pain, ear pain, sore throat RESPIRATORY: negative dyspnea, cough CARDIOVASCULAR: negative chest pain, palpitations GASTROINTESTINAL: negative nausea, vomiting, abdominal pain : negative dysuria, frequency, hematuria MUSCULOSKELETAL: negative muscle or bony pain SKIN: Positive rash, negative skin lesions, NEUROLOGIC: negative weakness, numbness ROS Unobtainable: All systems reviewed & are unremarkable except as noted in HPI and below Patient History Medical History Hereditary hemorrhagic telangiectasia Nasal obstruction Pulmonary arteriovenous malformation Thyroid nodule TIA (transient ischemic attack) Surgical History History of vascular surgery (10/2014) Status post delivery (2012) Status post delivery (2014) Status post delivery (~2018) Family History Brother Atrial fibrillation Family/Other Colon cancer Other AVM (arteriovenous malformation) CVA (cerebral vascular accident) Social History marital status: number of children: 2 household members: spouse education level: college occupational status: other Smoking Status: Never smoker alcohol intake: current (1 glass [id number] ) substance use type: does not use Smoking Status: Never smoker alcohol intake frequency: 0-2 drinks per day Substance Use Type: does not use Exam Narrative Exam Narrative: GENERAL: in no distress, not toxic not dyspneic HEAD: Normocephalic. EYES: Pupils equal round ENT: Mucous membranes moist. No lip or tongue swelling no drooling no malocclusion or trismus NECK: Trachea midline. No stridor CARDIOVASCULAR: Regular rate and rhythm RESPIRATORY: Clear to auscultation. Breath sounds equal bilaterally. No wheezes, rales, or rhonchi. Speaking full sentences. No respiratory distress EXTREMITIES: Examined left calf. Small dime-sized area of erythema with mild induration no fluctuance no drainage. Mild tenderness but no stinger sac seen. No lymphangitis. No crepitus. NEURO: AOx4. SKIN: Warm and dry PSYCH: Not anxious, is cooperative Initial Vital Signs Initial Vital Signs: Vital Signs Temperature 99.5 F 03/30/23 14:02 Pulse Rate 83 03/30/23 14:02 Respiratory Rate 14 03/30/23 14:02 Blood Pressure 147/84 H 03/30/23 14:02 Pulse Oximetry 99 03/30/23 14:02 Oxygen Delivery Method Room Air 03/30/23 14:02 Course Orders Ordered: Discontinued Medications Famotidine (Famotidine 20 Mg Tablet) 20 mg PO BID DL Famotidine (Famotidine 20 Mg Tablet) 20 mg PO DAILY ONE Stop: 03/30/23 14:13 Last Admin: 03/30/23 14:15 Dose: 20 mg Documented By: ST Prednisone (Prednisone 20 Mg Tablet) 40 mg PO NOW ONE Stop: 03/30/23 14:09 Last Admin: 03/30/23 14:15 Dose: 40 mg Documented By: ST Vital Signs Vital signs: Vital Signs - 8 hr 03/30/23 14:02 Temperature 99.5 F Pulse Rate 83 Respiratory Rate 14 Blood Pressure 147/84 H Pulse Oximetry 99 Oxygen Delivery Method Room Air MDM - Allergic Reaction MDM Narrative Medical decision making narrative: Patient had in 16 [place] a trail 1 hour ago. Had tingling to thigh and leg. She was stung in the mid left calf. No trouble breathing at this time. No throat tightening. No prior history of anaphylaxis to bee stings or insect stings. She is had bee stings before. Patient in no distress at this time. After history and exam Pepcid ice pack prednisone MDM CC: Insect sting Complicating co-morbidities: None Data collected from: Patient Medical records reviewed: No recent visits for this complaint Differential considered: Includes but not limited to anaphylaxis insect sting reaction Exam documented above, pertinent findings include: Erythema at sting site Treatments: Pepcid prednisone Re-evaluations: Reviewed exam with patient and treatment plan, she agrees. Return precautions reviewed. Nontoxic at discharge. No respiratory distress. Discussion: Appropriate for discharge home exam is reassuring. Patient has had bee stings before. This is not anaphylactic reaction. No epinephrine or EpiPen prescription indicated. Conservative treatment appropriate. Single dose steroid orally and then can take [id number] medications including hydrocortisone cream Benadryl cream oral Benadryl and Pepcid. Return precautions reviewed with her. She desires discharge home. No signs of cellulitis or infection Diagnosis: Insect sting Discharge Plan Departure Patient Disposition: Home Clinical Impression: Accidental insect sting Instructions: DI for Insect Bites and Stings Activity Restrictions/Additional Instructions: See family doctor in a week for re-evaluation of your insect sting. You may use vvkk-lxc-ogmfmmn Benadryl for any itching. This may be taken orally or you may get the Benadryl cream to apply to the skin. You may also use hydrocortisone cream to apply to the skin for relief as well. You may use Pepcid 20 mg twice a day for 5 days to help for allergic reaction. Single dose of steroid was given to you here in the emergency department. You do not need to continue this. Return if worse if any questions or concerns if any trouble breathing or any throat tightening. Prescriptions: No Action propranolol 10 mg tablet See Rx Instructions .ROUTE .COMPLEX Qty: 180 3RF Dose Instruction: TAKE 1 TABLET BY MOUTH TWICE DAILY Rx Instructions: TAKE 1 TABLET BY MOUTH TWICE DAILY zqlyxxplsu-ltmbrvpzvypdx-wlvi 50-325-40 mg tablet 1 tab PO Q6H PRN (Reason: migraine headache) Qty: 10 0RF aspirin 81 mg tablet,delayed release (DR/EC) 81 mg PO DAILY Qty: 90 0RF Referrals: Preethi Landers DO [Primary Care Provider] - Stand Alone Forms: Patient Portal/API
[2023-03-30 14:38] VITALS: BP 134/69; PULSE 89; RESP 12; O2SAT 99
== END 2023-03-30 14:40 | disposition home or self-care (01) ==
PROVIDERS: Emergency Provider Emergency Medicine; PCP Family Medicine
DX: T63.441A Toxic effect of venom of bees, accidental (unintentional), initial encounter (principal)
CPT/HCPCS: 99283; A9270

== ENCOUNTER → 2023-08-07 15:57 | Outpatient (CLI) | payer OTHER, SELFPAY ==
[2023-08-07 16:28] LABS: Add Manual Diff / Slide Review NO; Basophils Absolute Auto 0 /uL (0-100); Basophils Percent Auto 0.4 % (0-2); Eosinophils Absolute Auto 200 /uL (0-450); Hematocrit 39.8 % (36-46); Hemoglobin 13.5 g/dL (12.0-16.0); Lymphocytes Absolute Auto 1900 /uL (1100-4500); Lymphocytes Percent Auto 23.1 % (25-40); Mean Corpuscular HGB Conc 33.8 % (30-36); Mean Corpuscular Hemoglobin 29.5 PG (26-34); Mean Corpuscular Volume 87.2 fL (80-100); Monocytes Absolute Auto 800 /uL (0-900); Monocytes Percent Auto 9.6 % (3-14); Neutrophils Absolute Auto 5300 /uL (1500-7000); Neutrophils Percent Auto 64.9 % (50-75); Platelet Count 235 X10^3/uL (150-400); Red Blood Cell Count 4.56 X10^6/uL (4.0-5.2); Red Cell Distribution Width 12.9 % (11.6-14.8); White Blood Cell Count 8.2 X10^3/uL (4.5-11.0)
[2023-08-07 16:55] LABS: Iron 71 ug/dL (37-170)
[2023-08-07 22:56] LABS: HEMOLYSIS < 15 (0-50); Percent Iron Saturation 21 % (15-50); Total Iron Binding Capacity 339 ug/dL (265-497)
[2023-08-07 23:31] LABS: Transferrin 292 mg/dL (206-381)
== END ==
LOC: LAB 16:00
PROVIDERS: PCP Student in an Organized Health Care Education/Training Program; Referring Provider Internal Medicine Cardiovascular Disease; Visit Provider Internal Medicine Cardiovascular Disease
DX: Q27.30 Arteriovenous malformation, site unspecified (principal)
CPT/HCPCS: 36415; 83540; 83550; 85025

== ENCOUNTER → 2023-09-14 12:20 | Outpatient (CLI) | payer OTHER, SELFPAY | LOC: RESP 12:20 | PROVIDERS: PCP Student in an Organized Health Care Education/Training Program; Referring Provider Internal Medicine Cardiovascular Disease; Visit Provider Internal Medicine Cardiovascular Disease | DX: R06.02 Shortness of breath (principal) | CPT/HCPCS: 94010; 94729 ==

== ENCOUNTER → 2024-08-27 11:11 | Outpatient (CLI) | payer BC, SELFPAY ==
--- NOTE | 2024-08-27 11:14 | DI.MG.S_ITS ---
BILATERAL DIGITAL SCREENING MAMMOGRAM 3D/2D WITH CAD: 08/27/2024 CLINICAL: Routine screening. Comparison is made to exams dated: 09/12/2018 mammogram - [facility], 11/03/2015 mammogram, and 11/03/2015 mammogram - [facility]. The breasts are heterogeneously dense, which may obscure small masses (category c / 51-75% glandular tissue). Current study was also evaluated with a Computer Aided Detection (CAD) system. There is an asymmetry in the left breast posterior depth superior region seen on the mediolateral oblique view only. This is more prominent. No other significant masses, calcifications, or other findings are seen in either breast. IMPRESSION: INCOMPLETE: NEED ADDITIONAL IMAGING EVALUATION The asymmetry in the left breast is indeterminate. Additional views with possible ultrasound are recommended. Based on the Tyrer Cuzick model (a risk assessment model) the patient's lifetime risk is 15.2% and her 10 year risk is 2.3%. According to the ACR, ACS, and NCCN guidelines, an annual breast MRI exam along with mammogram is recommended if the patient's lifetime risk is 20% or greater. This exam was interpreted at Station ID: [id number]. NOTE: For mammograms, a report in lay terms will be sent to the patient. Approximately 15% of breast malignancies will not be visualized mammographically. In the management of a palpable breast mass, a negative mammogram must not discourage biopsy of a clinically suspicious lesion. Electronically Signed By: Stanley Lucero M.D. slc/:08/27/2024 15:06:54 letter sent: Additional Imaging Needed ACR BI-RADS Category 0: Incomplete: Need Additional Imaging Evaluation
== END ==
PROVIDERS: PCP Family Medicine; Referring Provider Family Medicine; Visit Provider Family Medicine
DX: Z12.31 Encounter for screening mammogram for malignant neoplasm of breast (principal); R92.333 Mammographic heterogeneous density, bilateral breasts
CPT/HCPCS: 77063; 77067

== ENCOUNTER → 2025-04-30 09:52 | Outpatient (CLI) | payer OTHER, SELFPAY ==
--- NOTE | 2025-04-30 09:58 | DI.RAD.S_ITS ---
PROCEDURE: XR FOOT RT MIN 3V INDICATIONS: Pain in right foot TECHNIQUE: 3 views of the foot were acquired. COMPARISON: None. FINDINGS: Bones: No fractures or dislocations. No suspicious bony lesions. Soft tissues: No tibiotalar joint effusion. Achilles tendon appears normal. IMPRESSION: No acute bony abnormality. Dictated by: Consuelo Curry MD, PhD on 04/30/2025 at 10:35 Approved by: Consuelo Curry MD, PhD on 04/30/2025 at 10:36
== END ==
PROVIDERS: PCP Family Medicine; Referring Provider Family Medicine; Visit Provider Family Medicine
DX: M79.671 Pain in right foot (principal)
CPT/HCPCS: 73630